=== PATIENT | female | born 1955 | race Caucasian/White ===

== ENCOUNTER 2017-08-15 23:30 | Inpatient (IN) | payer BC ==
[~2017-08-15] VITALS: Ht 149.9 cm; Wt 111.4 kg
[2017-08-15 23:30] VITALS: BP_SYST 160
[2017-08-15] MEDS ORDERED: BACL10TA PO (23:42)
[2017-08-15] MEDS ORDERED: LYR50 PO (23:42)
[2017-08-15] MEDS ORDERED: FURO-150 PO (23:42)
[2017-08-15] MEDS ORDERED: OXYC10TA71 PO (23:42)
[2017-08-16 01:08] LABS: BASOPHILS % (AUTO) 0.1 % (0.0-2.0); EOSINOPHILS # (AUTO) 0.2 K/uL (0.0-0.4); HEMOGLOBIN 9.9 g/dL (12.0-16.0); LYMPHOCYTES # (AUTO) 0.8 K/uL (1.0-5.5); LYMPHOCYTES % (AUTO) 8.3 % (20.5-51.5); MEAN CORPUSCULAR HEMOGLOBIN 25 pg (27-31); MEAN CORPUSCULAR HGB CONC 33 % (32-36); MEAN CORPUSCULAR VOLUME 76 fL (79.0-98.0); MONOCYTES # (AUTO) 0.6 K/uL (0.0-1.0); NEUTROPHILS % (AUTO) 83.6 % (40.0-70.0); PLATELET COUNT (AUTO) 265 K/uL (130-430); RED BLOOD CELL COUNT(AUTO) 3.95 MIL/uL (4.2-6.2); RED CELL DISTRIBUTION WIDTH 17.4 % (9.0-15.0); WHITE BLOOD COUNT (AUTO) 9.6 K/uL (4.8-10.8)
[2017-08-16 01:16] LABS: INR 1.9 (0.8-1.2); PROTHROMBIN TIME 19.6 SECS (9.5-12.5)
[2017-08-16 01:20] LABS: CALCIUM 7.8 mg/dL (8.4-11.0); CREATININE 1.72 mg/dL (0.55-1.30); POTASSIUM 3.8 mmol/L (3.5-5.1)
[2017-08-16 01:26] LABS: ALBUMIN 2.8 g/dL (3.4-4.8); TOTAL BILIRUBIN 0.5 mg/dL (0.0-1.0)
[2017-08-16 02:37] LABS: BILIRUBIN,URINE NEGATIVE (NEGATIVE); BLOOD, URINE TRACE (NEGATIVE); CLARITY/URINE CLEAR (CLEAR); COLOR,URINE YELLOW (YELLOW); GLUCOSE,URINE TRACE (NEGATIVE); KETONES,URINE NEGATIVE (NEGATIVE); LEUKOCYTE ESTERASE ,URINE NEGATIVE (NEGATIVE); NITRITE, URINE NEGATIVE (NEGATIVE); PROTEIN URINE TRACE (NEGATIVE); UROBILINOGEN,URINE 0.2 (0.2-1.0)
[2017-08-16 02:40] LABS: BACTERIA,URINE FEW /HPF (None Seen); MUCUS,URINE None Seen /LPF (None Seen); RBC,URINE 0-3 /HPF (0-3); WBC,URINE 0-3 /HPF (0-3)
[2017-08-16] MEDS ORDERED: KETOROLAC TROMETHAMINE 15 MG VIAL IVP ONE (03:00)
[2017-08-16] MEDS ORDERED: ONDANSETRON HCL 4 MG/2 ML VIAL IVP PRN (03:15)
[2017-08-16] MEDS ORDERED: FUROSEMIDE 40 MG/4 ML VIAL IVP SCH (03:30)
[2017-08-16 03:34] VITALS: BP_SYST 109
[2017-08-16 03:52] VITALS: BP_SYST 109
[2017-08-16] MEDS ORDERED: WARF4TAB68 PO (03:59)
[2017-08-16] MEDS: INSULIN REGULAR, HUMAN 100 UNITS/ML, 10 ML VIAL (novoLIN R) SUBCUT PRN ×3 (06:17→17:38)
[2017-08-16 08:00] VITALS: BP_SYST 127
[2017-08-16] MEDS: FUROSEMIDE 40 MG/4 ML VIAL IVP SCH ×2 (08:13→20:30)
[2017-08-16] MEDS ORDERED: CARVEDILOL 6.25 MG TABLET (COREG) PO ONE (09:45)
[2017-08-16] MEDS ORDERED: SPIRONOLACTONE 25 MG TABLET (ALDACTONE) PO ONE (10:00)
[2017-08-16 12:15] VITALS: BP_SYST 120
[2017-08-16] MEDS ORDERED: oxyCODONE HCL 10 MG TAB.ER.12H PO PRN (13:45)
[2017-08-16] MEDS: BACLOFEN 10 MG TABLET PO SCH ×2 (15:43→20:30)
[2017-08-16 16:59] VITALS: BP_SYST 102
[2017-08-16] MEDS: WARFARIN SODIUM 2 MG TABLET PO SCH (17:32)
[2017-08-16] MEDS: MORPHINE 4 MG/ML INJ. SYRINGE IVP PRN (18:15)
[2017-08-16 19:55] VITALS: BP_SYST 120
[2017-08-16] MEDS: SPIRONOLACTONE 25 MG TABLET (ALDACTONE) PO SCH (20:30)
[2017-08-16] MEDS ORDERED: CARVEDILOL 6.25 MG TABLET (COREG) PO SCH (21:00)
[2017-08-17] MEDS: MORPHINE 4 MG/ML INJ. SYRINGE IVP PRN ×4 (00:43→20:33)
[2017-08-17 01:35] VITALS: BP_SYST 111
[2017-08-17 05:11] VITALS: BP_SYST 107
[2017-08-17] MEDS: INSULIN REGULAR, HUMAN 100 UNITS/ML, 10 ML VIAL (novoLIN R) SUBCUT PRN ×3 (06:46→17:07)
[2017-08-17 07:18] LABS: BASOPHILS % (AUTO) 0.4 % (0.0-2.0); EOSINOPHILS # (AUTO) 0.2 K/uL (0.0-0.4); EOSINOPHILS % (AUTO) 2.8 % (0.0-4.0); HEMATOCRIT 30.5 % (36-48); HEMOGLOBIN 9.8 g/dL (12.0-16.0); LYMPHOCYTES % (AUTO) 12.1 % (20.5-51.5); MEAN CORPUSCULAR HEMOGLOBIN 25 pg (27-31); MEAN CORPUSCULAR HGB CONC 32 % (32-36); MEAN CORPUSCULAR VOLUME 77 fL (79.0-98.0); MONOCYTES # (AUTO) 0.4 K/uL (0.0-1.0); MONOCYTES % (AUTO) 4.9 % (1.7-9.3); NEUTROPHILS # (AUTO) 6.7 K/uL (1.8-7.7); NEUTROPHILS % (AUTO) 79.8 % (40.0-70.0); PLATELET COUNT (AUTO) 248 K/uL (130-430); RED BLOOD CELL COUNT(AUTO) 3.99 MIL/uL (4.2-6.2); RED CELL DISTRIBUTION WIDTH 17.6 % (9.0-15.0); WHITE BLOOD COUNT (AUTO) 8.3 K/uL (4.8-10.8)
[2017-08-17 07:30] LABS: INR 1.6 (0.8-1.2); PROTHROMBIN TIME 16.6 SECS (9.5-12.5)
[2017-08-17 07:52] LABS: ALBUMIN 2.6 g/dL (3.4-4.8); CALCIUM 8.2 mg/dL (8.4-11.0); CREATININE 1.45 mg/dL (0.55-1.30); POTASSIUM 3.9 mmol/L (3.5-5.1); TOTAL BILIRUBIN 0.7 mg/dL (0.0-1.0)
[2017-08-17 07:53] LABS: TOTAL IRON BIND. CAPACITY 299 ug/dL (250-450)
[2017-08-17 08:00] VITALS: BP_SYST 118
[2017-08-17] MEDS ORDERED: METOLAZONE 5 MG TABLET PO ONE (08:00)
[2017-08-17] MEDS ORDERED: MILK OF MAGNESIA 30 ML UDC PO ONE (08:00)
[2017-08-17] MEDS: BACLOFEN 10 MG TABLET PO SCH ×3 (08:05→21:54)
[2017-08-17] MEDS: SPIRONOLACTONE 25 MG TABLET (ALDACTONE) PO SCH ×2 (08:06→21:53)
[2017-08-17] MEDS: FUROSEMIDE 40 MG/4 ML VIAL IVP SCH ×2 (08:06→21:55)
[2017-08-17] MEDS: CARVEDILOL 12.5 MG TABLET (COREG) PO SCH ×2 (08:56→21:53)
[2017-08-17] MEDS ORDERED: WARFARIN SODIUM 4 MG TABLET PO SCH (09:00)
[2017-08-17 09:39] LABS: INR 1.6 (0.8-1.2); PROTHROMBIN TIME 16.8 SECS (9.5-12.5)
[2017-08-17 12:10] VITALS: BP_SYST 136
[2017-08-17] MEDS: NEPHROVITE, (FOLIC ACID/VITAMIN B COMP W-C 1 TAB) PO SCH (14:27)
[2017-08-17] MEDS: SOD FERRIC GLUC COMPLEX/SUC 125 MG in NS 100 ML IV SCH (14:27)
[2017-08-17 16:05] VITALS: BP_SYST 129
[2017-08-17] MEDS: WARFARIN SODIUM 2 MG TABLET PO SCH (17:08)
[2017-08-17 20:15] VITALS: BP_SYST 112
[2017-08-18 00:49] VITALS: BP_SYST 130
[2017-08-18] MEDS: MORPHINE 4 MG/ML INJ. SYRINGE IVP PRN ×4 (02:27→21:22)
[2017-08-18] MEDS: INSULIN REGULAR, HUMAN 100 UNITS/ML, 10 ML VIAL (novoLIN R) SUBCUT PRN ×3 (06:13→16:34)
[2017-08-18 07:17] LABS: BASOPHILS % (AUTO) 0.4 % (0.0-2.0); EOSINOPHILS # (AUTO) 0.2 K/uL (0.0-0.4); EOSINOPHILS % (AUTO) 3.2 % (0.0-4.0); HEMATOCRIT 29.1 % (36-48); HEMOGLOBIN 9.3 g/dL (12.0-16.0); LYMPHOCYTES # (AUTO) 0.9 K/uL (1.0-5.5); LYMPHOCYTES % (AUTO) 12.3 % (20.5-51.5); MEAN CORPUSCULAR HEMOGLOBIN 24 pg (27-31); MEAN CORPUSCULAR HGB CONC 32 % (32-36); MEAN CORPUSCULAR VOLUME 76 fL (79.0-98.0); MONOCYTES # (AUTO) 0.5 K/uL (0.0-1.0); MONOCYTES % (AUTO) 7.8 % (1.7-9.3); NEUTROPHILS # (AUTO) 5.4 K/uL (1.8-7.7); NEUTROPHILS % (AUTO) 76.3 % (40.0-70.0); PLATELET COUNT (AUTO) 231 K/uL (130-430); RED BLOOD CELL COUNT(AUTO) 3.84 MIL/uL (4.2-6.2); RED CELL DISTRIBUTION WIDTH 17.6 % (9.0-15.0)
[2017-08-18 08:00] VITALS: BP_SYST 104
[2017-08-18 08:18] LABS: INR 1.6 (0.8-1.2); PROTHROMBIN TIME 16.1 SECS (9.5-12.5)
[2017-08-18] MEDS: NEPHROVITE, (FOLIC ACID/VITAMIN B COMP W-C 1 TAB) PO SCH (08:20)
[2017-08-18] MEDS: BACLOFEN 10 MG TABLET PO SCH ×3 (08:20→21:07)
[2017-08-18] MEDS: FUROSEMIDE 40 MG/4 ML VIAL IVP SCH ×2 (08:25→21:06)
[2017-08-18] MEDS: SPIRONOLACTONE 25 MG TABLET (ALDACTONE) PO SCH ×2 (08:26→21:06)
[2017-08-18] MEDS: CARVEDILOL 12.5 MG TABLET (COREG) PO SCH ×2 (08:26→21:07)
[2017-08-18 08:46] LABS: RETICULOCYTE COUNT 3.6 % (0.5-1.5)
[2017-08-18 08:52] LABS: ALBUMIN 2.4 g/dL (3.4-4.8); CALCIUM 8.4 mg/dL (8.4-11.0); CREATININE 1.45 mg/dL (0.55-1.30); POTASSIUM 3.8 mmol/L (3.5-5.1); TOTAL BILIRUBIN 0.5 mg/dL (0.0-1.0)
[2017-08-18] MEDS ORDERED: METOLAZONE 5 MG TABLET PO ONE (10:55)
[2017-08-18 12:38] VITALS: BP_SYST 101
[2017-08-18 13:24] LABS: FOLATE (FOLIC ACID) 10.3 ng/mL (>3.0)
[2017-08-18] MEDS: SIMETHICONE 80 MG TAB.CHEW PO SCH ×2 (14:16→21:07)
[2017-08-18] MEDS: SOD FERRIC GLUC COMPLEX/SUC 125 MG in NS 100 ML IV SCH (14:17)
[2017-08-18 16:24] VITALS: BP_SYST 111
[2017-08-18] MEDS: WARFARIN SODIUM 2 MG TABLET PO SCH (17:53)
[2017-08-18 20:00] VITALS: BP_SYST 134
[2017-08-18 23:43] VITALS: BP_SYST 123
[2017-08-19] MEDS: MORPHINE 4 MG/ML INJ. SYRINGE IVP PRN ×4 (04:19→23:52)
[2017-08-19] MEDS: INSULIN REGULAR, HUMAN 100 UNITS/ML, 10 ML VIAL (novoLIN R) SUBCUT PRN ×3 (06:33→17:18)
[2017-08-19 06:41] LABS: BASOPHILS % (AUTO) 0.4 % (0.0-2.0); EOSINOPHILS # (AUTO) 0.2 K/uL (0.0-0.4); HEMOGLOBIN 9.6 g/dL (12.0-16.0); LYMPHOCYTES # (AUTO) 0.9 K/uL (1.0-5.5); LYMPHOCYTES % (AUTO) 10.9 % (20.5-51.5); MEAN CORPUSCULAR HEMOGLOBIN 25 pg (27-31); MEAN CORPUSCULAR HGB CONC 33 % (32-36); MEAN CORPUSCULAR VOLUME 75 fL (79.0-98.0); MONOCYTES # (AUTO) 0.5 K/uL (0.0-1.0); MONOCYTES % (AUTO) 6.5 % (1.7-9.3); NEUTROPHILS # (AUTO) 6.7 K/uL (1.8-7.7); NEUTROPHILS % (AUTO) 79.2 % (40.0-70.0); PLATELET COUNT (AUTO) 241 K/uL (130-430); RED BLOOD CELL COUNT(AUTO) 3.85 MIL/uL (4.2-6.2); RED CELL DISTRIBUTION WIDTH 17.5 % (9.0-15.0); WHITE BLOOD COUNT (AUTO) 8.3 K/uL (4.8-10.8)
[2017-08-19 07:13] LABS: INR 1.5 (0.8-1.2); PROTHROMBIN TIME 15.4 SECS (9.5-12.5)
[2017-08-19 07:28] LABS: CALCIUM 8.6 mg/dL (8.4-11.0); CREATININE 1.49 mg/dL (0.55-1.30)
[2017-08-19 08:00] VITALS: BP_SYST 101
[2017-08-19] MEDS: NEPHROVITE, (FOLIC ACID/VITAMIN B COMP W-C 1 TAB) PO SCH (10:09)
[2017-08-19] MEDS: SIMETHICONE 80 MG TAB.CHEW PO SCH ×3 (10:10→22:10)
[2017-08-19] MEDS: BACLOFEN 10 MG TABLET PO SCH ×3 (10:10→22:10)
[2017-08-19] MEDS: METOLAZONE 5 MG TABLET PO SCH (11:33)
[2017-08-19] MEDS: FUROSEMIDE 40 MG/4 ML VIAL IVP SCH ×2 (11:33→22:10)
[2017-08-19] MEDS: SPIRONOLACTONE 25 MG TABLET (ALDACTONE) PO SCH ×2 (11:34→22:11)
[2017-08-19] MEDS: CARVEDILOL 12.5 MG TABLET (COREG) PO SCH ×2 (11:35→22:10)
[2017-08-19 12:05] VITALS: BP_SYST 122
[2017-08-19] MEDS ORDERED: BISACODYL 10 MG/SUPPOSITORY RC PRN (13:30)
[2017-08-19] MEDS ORDERED: BISACODYL 5 MG TABLET.DR (DULCOLAX) PO PRN (13:30)
[2017-08-19] MEDS ORDERED: BISACODYL 5 MG TABLET.DR (DULCOLAX) PO ONE (13:30)
[2017-08-19] MEDS: SOD FERRIC GLUC COMPLEX/SUC 125 MG in NS 100 ML IV SCH (14:07)
[2017-08-19] MEDS ORDERED: DOCUSATE SODIUM 250 MG CAPSULE PO ONE (14:15)
[2017-08-19 16:52] VITALS: BP_SYST 106
[2017-08-19] MEDS ORDERED: WARFARIN SODIUM 3 MG TABLET PO SCH (18:00)
[2017-08-19 20:00] VITALS: BP_SYST 118
[2017-08-19] MEDS: DOCUSATE SODIUM 250 MG CAPSULE PO SCH (22:11)
[2017-08-20 00:54] VITALS: BP_SYST 104
[2017-08-20 06:22] LABS: BASOPHILS % (AUTO) 0.3 % (0.0-2.0); EOSINOPHILS # (AUTO) 0.2 K/uL (0.0-0.4); EOSINOPHILS % (AUTO) 2.4 % (0.0-4.0); HEMATOCRIT 30.7 % (36-48); HEMOGLOBIN 10.2 g/dL (12.0-16.0); LYMPHOCYTES # (AUTO) 0.9 K/uL (1.0-5.5); LYMPHOCYTES % (AUTO) 9.2 % (20.5-51.5); MEAN CORPUSCULAR HEMOGLOBIN 25 pg (27-31); MEAN CORPUSCULAR HGB CONC 33 % (32-36); MEAN CORPUSCULAR VOLUME 76 fL (79.0-98.0); MONOCYTES # (AUTO) 0.6 K/uL (0.0-1.0); MONOCYTES % (AUTO) 6.4 % (1.7-9.3); NEUTROPHILS # (AUTO) 7.7 K/uL (1.8-7.7); NEUTROPHILS % (AUTO) 81.7 % (40.0-70.0); PLATELET COUNT (AUTO) 253 K/uL (130-430); RED BLOOD CELL COUNT(AUTO) 4.03 MIL/uL (4.2-6.2); WHITE BLOOD COUNT (AUTO) 9.4 K/uL (4.8-10.8)
[2017-08-20] MEDS: INSULIN REGULAR, HUMAN 100 UNITS/ML, 10 ML VIAL (novoLIN R) SUBCUT PRN ×2 (06:24→11:52)
[2017-08-20 06:36] LABS: CALCIUM 8.7 mg/dL (8.4-11.0); CREATININE 1.53 mg/dL (0.55-1.30); POTASSIUM 3.7 mmol/L (3.5-5.1)
[2017-08-20 08:00] VITALS: BP_SYST 96
[2017-08-20] MEDS: MORPHINE 4 MG/ML INJ. SYRINGE IVP PRN ×2 (08:22→14:49)
[2017-08-20 10:19] LABS: INR 1.7 (0.8-1.2); PROTHROMBIN TIME 17.2 SECS (9.5-12.5)
[2017-08-20] MEDS: DOCUSATE SODIUM 250 MG CAPSULE PO SCH (10:21)
[2017-08-20] MEDS: NEPHROVITE, (FOLIC ACID/VITAMIN B COMP W-C 1 TAB) PO SCH (10:21)
[2017-08-20] MEDS: SIMETHICONE 80 MG TAB.CHEW PO SCH (10:22)
[2017-08-20] MEDS: BACLOFEN 10 MG TABLET PO SCH (10:22)
[2017-08-20] MEDS: METOLAZONE 5 MG TABLET PO SCH (10:26)
[2017-08-20] MEDS: CARVEDILOL 12.5 MG TABLET (COREG) PO SCH (10:26)
[2017-08-20] MEDS: FUROSEMIDE 40 MG/4 ML VIAL IVP SCH (10:26)
[2017-08-20] MEDS: SPIRONOLACTONE 25 MG TABLET (ALDACTONE) PO SCH (10:27)
[2017-08-20 12:53] VITALS: BP_SYST 110
[2017-08-20] MEDS: SOD FERRIC GLUC COMPLEX/SUC 125 MG in NS 100 ML IV SCH (13:50)
[2017-08-20 14:00] VITALS: BP_SYST 110
== END 2017-08-20 16:15 | DRG 291 ==
LOC: SED 23:30 → STU 08-16 03:01
PROVIDERS: ADMIT Internal Medicine; ATTEND Internal Medicine
DX: I13.0 Hypertensive heart and chronic kidney disease with heart failure and stage 1 through stage 4 chronic kidney disease, or unspecified chronic kidney disease (principal); I50.43 Acute on chronic combined systolic (congestive) and diastolic (congestive) heart failure; N17.0 Acute kidney failure with tubular necrosis; E43 Unspecified severe protein-calorie malnutrition; Z68.42 Body mass index [BMI] 45.0-49.9, adult; E11.22 Type 2 diabetes mellitus with diabetic chronic kidney disease; E11.42 Type 2 diabetes mellitus with diabetic polyneuropathy; I42.0 Dilated cardiomyopathy; E66.01 Morbid (severe) obesity due to excess calories; D63.8 Anemia in other chronic diseases classified elsewhere; N18.3 Chronic kidney disease, stage 3 (moderate); K43.9 Ventral hernia without obstruction or gangrene; G89.4 Chronic pain syndrome; E88.09 Other disorders of plasma-protein metabolism, not elsewhere classified; Z85.42 Personal history of malignant neoplasm of other parts of uterus; Z86.711 Personal history of pulmonary embolism; Z98.891 History of uterine scar from previous surgery; Z92.3 Personal history of irradiation; Z90.710 Acquired absence of both cervix and uterus; Z92.21 Personal history of antineoplastic chemotherapy; Z85.43 Personal history of malignant neoplasm of ovary; Z79.01 Long term (current) use of anticoagulants; Z79.899 Other long term (current) drug therapy; Z91.14 Patient's other noncompliance with medication regimen
CPT/HCPCS: 36415; 71045; 76770; 80048; 80053; 80061; 81000-TC; 82570-TC; 82607; 82746; 82962; 83036; 83540-TC; 83550-TC; 83735-TC; 83880; 84443-TC; 84484; 85025; 85044-TC; 85610-TC; 85730-TC; 93005; 93306; 93880; 97110-GP; 97116-GP; 97530-GP; 99285; J1815; J1940; J2270; J2916

== ENCOUNTER 2017-12-17 11:50 | Inpatient (IN) | payer BC ==
[~2017-12-17] VITALS: Ht 147.3 cm; Wt 107.0 kg
[~2017-12-17 11:50] MED LIST: BACL10TA PO; FURO-150 PO; LYR50 PO; OXYC10TA56 PO; WARF4TAB68 PO
[2017-12-17 11:52] VITALS: BP_SYST 124
--- NOTE | 2017-12-17 11:52 | NUR ---
Pt BIB daughter from home. Daughter states that pt is off her baseline. Daughter states that pt usually gets her child ready for school but this morning only got her partially dressed. Also pt.'s close were all over the floor. Daughter states that she found a bottle of Lyrica with pills all over the floor and some run over and crushed by pt.'s W/C. Pt AAOx2, talkative. Pt c/o pain and swelling to BLE.
--- NOTE | 2017-12-17 11:52 | NUR ---
Pt placed in bed 2
--- NOTE | 2017-12-17 11:55 | NUR ---
Bigeminy and Trigeminy noted to engine monitor. Dr. Hawkins made aware.
--- NOTE | 2017-12-17 12:00 | NUR ---
ER Dr. Hawkins at bedside examining patient.
--- NOTE | 2017-12-17 12:06 | NUR ---
# 22 gauge angiocath placed to Right Wrist. Use of asceptic technique. Opsite placed over site. Blood return noted. Blood for lab drawn from site. Flushed with 10 cc of normal saline. No evidence of infiltration noted. Patient tolerated well.
--- NOTE | 2017-12-17 12:10 | NUR ---
Pt denies c/o SOB or C/P. Daughter at bedside. No needs verbalized.
--- NOTE | 2017-12-17 12:14 | NUR ---
X-ray at bedside.
[2017-12-17 12:23] LABS: BASOPHILS # (AUTO) 0.1 K/uL (0.0-0.2); BASOPHILS % (AUTO) 0.7 % (0.0-2.0); EOSINOPHILS % (AUTO) 0.4 % (0.0-4.0); HEMATOCRIT 32.1 % (36-48); HEMOGLOBIN 10.8 g/dL (12.0-16.0); LYMPHOCYTES # (AUTO) 0.6 K/uL (1.0-5.5); LYMPHOCYTES % (AUTO) 5.8 % (20.5-51.5); MEAN CORPUSCULAR HEMOGLOBIN 29 pg (27-31); MEAN CORPUSCULAR HGB CONC 34 % (32-36); MEAN CORPUSCULAR VOLUME 87 fL (79.0-98.0); MONOCYTES # (AUTO) 0.3 K/uL (0.0-1.0); MONOCYTES % (AUTO) 3.5 % (1.7-9.3); NEUTROPHILS # (AUTO) 8.5 K/uL (1.8-7.7); NEUTROPHILS % (AUTO) 89.6 % (40.0-70.0); PLATELET COUNT (AUTO) 212 K/uL (130-430); RED CELL DISTRIBUTION WIDTH 14.9 % (9.0-15.0); WHITE BLOOD COUNT (AUTO) 9.5 K/uL (4.8-10.8)
--- NOTE | 2017-12-17 12:36 | NUR ---
Pt. to CT via stretcher.
[2017-12-17 12:40] LABS: ANION GAP 13 (5-15); CALCIUM 9.3 mg/dL (8.4-11.0); CHLORIDE 105 mmol/L (98-107); GLUCOSE 168 mg/dL (70-99); POTASSIUM 3.8 mmol/L (3.5-5.1); SODIUM SERUM 141 mmol/L (136-145); UREA NITROGEN, BLOOD 49 mg/dL (8-21)
[2017-12-17 12:42] LABS: GFR AFRICAN AMERICAN 34 mL/min (>90)
[2017-12-17 12:46] LABS: ALANINE AMINOTRANSFERASE 13 U/L (12-78); ALBUMIN 3.3 g/dL (3.4-4.8); ASPARTATE AMINOTRANSFERASE 15 U/L (10-37); TOTAL BILIRUBIN 0.7 mg/dL (0.0-1.0)
[2017-12-17 12:47] LABS: ALCOHOL, BLOOD < 3 mg/dL (<10)
[2017-12-17 12:49] LABS: INR 4.7 (0.8-1.2); PROTHROMBIN TIME 48.9 SECS (9.5-12.5)
--- NOTE | 2017-12-17 13:00 | NUR ---
Resting quietly, even and non-labored respirations. SPO2 94% RA. Occasional trigeminy noted to bedside supervisor paper coating. Dr. Hawkins aware. Pt denies c/o C/P.
--- NOTE | 2017-12-17 14:35 | NUR ---
Admit orders received per Dr. Pierce. Pt SPO2 in low 90's. Instructed to get stat ABG.
--- NOTE | 2017-12-17 14:38 | NUR ---
RT at bedside. ABG drawn. Pt placed on O2 at 2 LPM/NC, SPO2 100%.
--- NOTE | 2017-12-17 15:12 | NUR ---
Patient will be admitted to care of Dr. Pierce. Admitted to Tele unit. Will go to room 113B. Belongings list completed. Summary report printed. Report will be given at bedside.
--- NOTE | 2017-12-17 15:22 | NUR ---
Admission Note Received patient from ER with diagnosis of aloc. Oriented to room, call light, pain management and safety. Addendum: 12/17/17 at 1957 by Carole Quiroz RN pt home medication list verified with marta gatica
[2017-12-17 15:37] VITALS: BP_SYST 122
--- NOTE | 2017-12-17 16:00 | NUR ---
rounds pt lethergic able to aroused easily with verbal stimuli. vitals stable denies any pain or discomfort. daughter at bedside. dr adkins seen pt new order received will conitnue to monitor
[2017-12-17] MEDS ORDERED: CARV6.2554 PO (16:04)
[2017-12-17] MEDS ORDERED: DEXTROSE 50% JECT 50 ML DISP.SYRIN IVP PRN (17:15)
--- NOTE | 2017-12-17 17:43 | NUR ---
CONSULTATION PAGED REASON FOR CONSULTATION:ALOC WAS CONSULT CALLED?Y PERSON WHO WAS NOTIFIED:PEGGY CONSULTING PHYSICIAN:ASAF RUDOLPH AUDIO VISUAL EQUIPMENT RENTAL CLERK SPECIALTY:PSYCHE AUDIO VISUAL EQUIPMENT RENTAL CLERK PHONE NUMBER:[phone] ORDERING PHYSICIAN:CINDY JUNIOR
--- NOTE | 2017-12-17 18:00 | NUR ---
rounds pt stable . sleeping easily aroused. tried to feed pt.pt ate half of her ice cream.and drank milk. denies any pain or orther discomfort. fall and safety precautions maintained . will continue to monitor
--- NOTE | 2017-12-17 19:15 | NUR ---
REPORT: RECEIVED BEDSIDE REPORT FROM RAMAN BLOOM.PATIENT IN BED AT 30 DEGREES HEAD OF UP.NO RESPONSE WHEN CALLED HER NAME LOUD. NO RESPONSE WITH SLIGHT TO MODERATE STERNAL STIMULI.NO RESPONSE DURING NAIL PINCHING. MOANS LIGHTLY WITH STRONG STERNAL STIMULI. REPORTED TO AM AND PM CHARGE RNS. SAID PT. ADMITTED WITH ALOC AND PRIMARY MD IS AWARE OF IT.VITAL SIGNS TAKEN AT 19:18 122/75 HR 87 RR 15 -16 SAT 99%AT 2 LITERS PER NASAL CANNULA. TEMP 97.8.VERY OBESE, GENERALIZED EDEMA, LARGE LYMPH EDEMA TO BOTH LEGS, HUGE ABDOMEN. SINUS WITH 1ST DEG AV BLOCK WITH PVCS. INCONTINENT OF URINE. SALINE LOCK TO RFA #22 GAUGE. CALL LIGHT WITHIN REACH. BED IN LOW POSITION.
[2017-12-17 19:18] VITALS: BP_SYST 123
--- NOTE | 2017-12-17 19:30 | NUR ---
closing notes pt stable . not in acute distress. denies c/o of pain or orther discomfort. o2 2 l continue as ordered o2 sat 98%. report given to night nurse
[2017-12-17 20:00] VITALS: BP_SYST 106
--- NOTE | 2017-12-17 20:00 | NUR ---
REMAINS UNRESPONSIVE VERBALLY,MOANS SLOWLY TO STRONG STERNAL STIMULI. PAGED DR. HERNÁNDEZ .
--- NOTE | 2017-12-17 20:05 | NUR ---
BP 106 /59 HR 77 RR 16 SAT 97%,PLACED ON CONT. RECORDING OF PULSE OXIMETER.
--- NOTE | 2017-12-17 20:15 | NUR ---
RAMAN MUNGUIA INSERTED GAUGE #20 TO LFA X1 ATTEMPT WITH BLOOD RETURN.
--- NOTE | 2017-12-17 20:25 | NUR ---
.CALLED BACK: Vnice MONTIEL CALLED BACK. REPORTED CURRENT PATIENT CONDITIONS ,WITH ORDERS.
[2017-12-17] MEDS ORDERED: NALOXONE HCL 0.4 MG/ML AMP (NARCAN) IVP ONE (20:30)
--- NOTE | 2017-12-17 20:35 | NUR ---
CASILLAS CATHETER FR. 16 INSERTED WITH HELP OF 2 STAFF. WITH GOOD AMT. CLEAR FRED URINE.
[2017-12-17] MEDS ORDERED: NALOXONE HCL 0.4 MG/ML AMP (NARCAN) IVP SCH (20:45)
[2017-12-17] MEDS: FUROSEMIDE 20 MG TABLET PO SCH (21:00)
[2017-12-17] MEDS: BACLOFEN 10 MG TABLET PO SCH (21:00)
--- NOTE | 2017-12-17 21:18 | NUR ---
NARCAN: NARCAN 0.4MG IV GIVEN SLOWLY DUE TO PATIENT OBTUNDED.OPENS EYES SLOWLY TO STRONG STERNAL STIMULI. DRUM CLEANER AND ADRN AWARE.
[2017-12-17 21:53] LABS: BILIRUBIN,URINE NEGATIVE (NEGATIVE); BLOOD, URINE NEGATIVE (NEGATIVE); CLARITY/URINE CLEAR (CLEAR); COLOR,URINE YELLOW (YELLOW); GLUCOSE,URINE NEGATIVE (NEGATIVE); KETONES,URINE NEGATIVE (NEGATIVE); LEUKOCYTE ESTERASE ,URINE NEGATIVE (NEGATIVE); NITRITE, URINE NEGATIVE (NEGATIVE); PH,URINE 5.5 (5.0-8.0); PROTEIN URINE TRACE (NEGATIVE); UROBILINOGEN,URINE 0.2 (0.2-1.0)
[2017-12-17] MEDS: PREGABALIN 25 MG CAPSULE (LYRICA) PO SCH (22:00)
[2017-12-17 22:03] LABS: BACTERIA,URINE FEW /HPF (None Seen); MUCUS,URINE None Seen /LPF (None Seen); RBC,URINE NONE SEEN /HPF (0-3); WBC,URINE 0-3 /HPF (0-3)
--- NOTE | 2017-12-17 22:10 | NUR ---
ROUNDS: OPENS EYES WITH MOD. STERNAL STIMULI.OPENS EYES SLOWLY.
[2017-12-17 23:49] VITALS: BP_SYST 113
--- NOTE | 2017-12-18 | NUR ---
MORE AWAKE. TRY TO SITS UP ON BED. CONFUSE.ORIENTED TO PLACE ONLY. DONT KNOW HER NAME. FOLLOW COMMANDS BY SQUEEZING SLOWLY HANDS BUT DID AT 3X REQUESTS.
--- NOTE | 2017-12-18 02:00 | NUR ---
OPENS EYES AND MOANS WITH LIGHT STIMULI.TURNED TO SIGNS.
--- NOTE | 2017-12-18 04:00 | NUR ---
RESTING QUIETELY. WITH OXYGEN ON .SAT 94%.
[2017-12-18 04:03] LABS: BARBITURATE, URINE NEGATIVE (NEG <=200); BENZODIAZEPINE, URINE NEGATIVE (NEG <=150); CANNABINOID, URINE NEGATIVE (NEG <=50); COCAINE, URINE NEGATIVE (NEG <=150); METHAMPHETAMINES SCREEN,URINE NEGATIVE (NEG <=500); OPIATE, URINE NEGATIVE (NEG <=100); PHENCYCLIDINE SCREEN,URINE NEGATIVE (NEG <=25); UR TRICYCLIC ANTIDEPRESSANTS NEGATIVE (NEG <=300); URINE AMPHETAMINE NEGATIVE (NEG <=500); URINE METHADONE NEGATIVE (NEG <=200); URINE OXYCODONE SCREEN POSITIVE (NEG <=100); URINE PROPOXYPHENE SCREEN NEGATIVE (NEG <=300)
--- NOTE | 2017-12-18 04:30 | NUR ---
patient yelling due to pain. it hurts. does not know her name yet.
--- NOTE | 2017-12-18 05:45 | NUR ---
verbalizing having low back pain. oriented x3. this time.able to verbalize what happen how she got to er. able to drink water with good swallowing reflex. lyrica 50mg po given with orange juice without difficulty. blood sugar 128mg/dl. no coverage.
[2017-12-18] MEDS: PREGABALIN 25 MG CAPSULE (LYRICA) PO SCH (06:37)
--- NOTE | 2017-12-18 06:50 | NUR ---
closing: all needs were attended. hourly rounds done. repositioned. more coherent this morning. full report given to am rn for further care.
--- NOTE | 2017-12-18 07:38 | NUR ---
Initial notes: Patient on bed awake, alert and oriented. Stable. On oxygen @2l via NC. I.V. access patent. Safety measures in placed. Call light within reach. Report received from bedside.
[2017-12-18 07:43] LABS: ANION GAP 9 (5-15); CHLORIDE 108 mmol/L (98-107); CREATININE 1.48 mg/dL (0.55-1.30); POTASSIUM 4.1 mmol/L (3.5-5.1); UREA NITROGEN, BLOOD 43 mg/dL (8-21)
[2017-12-18 07:48] LABS: SODIUM SERUM 144 mmol/L (136-145)
[2017-12-18 07:49] LABS: GLUCOSE 135 mg/dL (70-99)
[2017-12-18 07:50] LABS: ALANINE AMINOTRANSFERASE 19 U/L (12-78); ASPARTATE AMINOTRANSFERASE 20 U/L (10-37); GFR AFRICAN AMERICAN 43 mL/min (>90); TOTAL BILIRUBIN 0.6 mg/dL (0.0-1.0)
[2017-12-18 07:51] LABS: ALBUMIN 2.8 g/dL (3.4-4.8); PHOSPHORUS 5.5 mg/dL (2.7-4.5)
[2017-12-18 07:54] VITALS: BP_SYST 130
[2017-12-18 07:54] LABS: FREE T4 (FREE THYROXINE) 1.1 ng/dL (0.6-1.6); LIPASE 42 U/L (73-393); THYROID STIMULATING HORMONE 0.54 uIu/mL (0.34-4.82)
[2017-12-18 08:02] LABS: BASOPHILS % (AUTO) 0.4 % (0.0-2.0); EOSINOPHILS # (AUTO) 0.1 K/uL (0.0-0.4); EOSINOPHILS % (AUTO) 0.9 % (0.0-4.0); HEMATOCRIT 32.8 % (36-48); HEMOGLOBIN 10.7 g/dL (12.0-16.0); LYMPHOCYTES # (AUTO) 0.5 K/uL (1.0-5.5); LYMPHOCYTES % (AUTO) 7.3 % (20.5-51.5); MEAN CORPUSCULAR HEMOGLOBIN 28 pg (27-31); MEAN CORPUSCULAR HGB CONC 33 % (32-36); MEAN CORPUSCULAR VOLUME 87 fL (79.0-98.0); MONOCYTES # (AUTO) 0.3 K/uL (0.0-1.0); MONOCYTES % (AUTO) 5.2 % (1.7-9.3); NEUTROPHILS # (AUTO) 5.8 K/uL (1.8-7.7); NEUTROPHILS % (AUTO) 86.2 % (40.0-70.0); PLATELET COUNT (AUTO) 193 K/uL (130-430); RED BLOOD CELL COUNT(AUTO) 3.77 MIL/uL (4.2-6.2); RED CELL DISTRIBUTION WIDTH 15.8 % (9.0-15.0); WHITE BLOOD COUNT (AUTO) 6.7 K/uL (4.8-10.8)
[2017-12-18] MEDS: FUROSEMIDE 20 MG TABLET PO SCH ×2 (08:23→21:10)
[2017-12-18] MEDS: BACLOFEN 10 MG TABLET PO SCH ×3 (08:23→21:10)
[2017-12-18] MEDS: CARVEDILOL 6.25 MG TABLET (COREG) PO SCH (08:23)
--- NOTE | 2017-12-18 08:27 | NUR ---
rounds: patient on bed eating breakfast needs feeding assist due to weakness. Medication given with apple sauce and compliant.
[2017-12-18 08:36] LABS: CHOLESTEROL 121 mg/dL (<200); HDL CHOLESTEROL 39 mg/dL (>55); LDL CHOLESTEROL 69 mg/dL (<100); TRIGLYCERIDES 73 mg/dL (30-150)
--- NOTE | 2017-12-18 10:55 | NUR ---
rounds: patient sleeping. no distress noted.
--- NOTE | 2017-12-18 11:01 | NUR ---
Nutrition Update Leonel Scale 15 noted. Pt admitted for ALOC. Diet: cardiac BMI: 50.4 kg/m2 RD to follow per nutrition care standards.
--- NOTE | 2017-12-18 12:00 | NUR ---
EEG: EEG done at bedside.
[2017-12-18 12:10] VITALS: BP_SYST 127
--- NOTE | 2017-12-18 14:04 | NUR ---
rounds: patient resting on bed and talking to case management.
--- NOTE | 2017-12-18 14:17 | NUR ---
CONSULTATION PAGED/CALLED Reason for Consultation: TACHY Person Who was Notified: SPOKE WITH JOSR FROM [facility] Consulting Physician: IS RAYON TESTER FOR DR LEON [phone] Roll Bucker Specialty: CARDIO Ordering Physician:
--- NOTE | 2017-12-18 15:15 | NUR ---
rounds: patient on bed sitting up. drinking ice tea. no distress noted.
--- NOTE | 2017-12-18 15:33 | NUR ---
Dietitian Recommendations * Recommend cardiac, CCHO diet LP, RD Please refer to Nutrition Assessment for details.
[2017-12-18 16:05] VITALS: BP_SYST 123
[2017-12-18] MEDS: INSULIN REGULAR, HUMAN 100 UNITS/ML, 10 ML VIAL (novoLIN R) SUBCUT PRN (16:53)
--- NOTE | 2017-12-18 16:55 | NUR ---
rounds: patient watching t.v. no distress noted.
--- NOTE | 2017-12-18 18:26 | NUR ---
closing notes: Patient on bed resting. Stable. Needs attended. Perez cath draining well by gravity. Family at bedside. Safety measures in placed. Call light within reach. Report will be given to night worker.
[2017-12-18 20:23] VITALS: BP_SYST 119
--- NOTE | 2017-12-18 20:55 | NUR ---
Flu Vac Administered Admin Flu vac as requested by patient. Denies allergy to iodine, shellfish and receives flu shots each year as per patient. Will monitor for reaction.
--- NOTE | 2017-12-18 21:10 | NUR ---
ALL DUE MEDS PO GIVEN.
[2017-12-18] MEDS: oxyCODONE HCL 10 MG TAB.ER.12H PO PRN ×2 (22:07→22:17)
--- NOTE | 2017-12-18 22:15 | NUR ---
PATIENT YELLING AND CALLING FOR PAIN MEDS DUE TO BACK AND LEG PAIN. OXYCODONE PO GIVEN. IN EMAR IT DOES NOT SHOW PAIN LEVEL / ASSESSMENT SECTION. IT GOES TO ADMINSTER RIGHT AWAY. CASTING AND PASTING SUPERVISOR NOTIFIED AND CHECKED. USED ANOTHER COMPUTER ITS THE SAME. CASTING AND PASTING SUPERVISOR CALLED [facility] .DONT KNOW.
--- NOTE | 2017-12-18 22:30 | NUR ---
HYGIENE /BATH RENDERED.
[2017-12-19 00:42] VITALS: BP_SYST 142
--- NOTE | 2017-12-19 05:35 | NUR ---
PAIN .PATIENT CALLED FOR PAIN MED. OXYCODONE 10MG PO GIVEN. NO PLACE TO ENTER IN COMPUTER LEVEL AND PAIN LOCATION.
[2017-12-19] MEDS: oxyCODONE HCL 10 MG TAB.ER.12H PO PRN ×3 (05:37→20:03)
[2017-12-19 07:25] LABS: HEMATOCRIT 32.9 % (36-48); HEMOGLOBIN 10.9 g/dL (12.0-16.0); MEAN CORPUSCULAR HEMOGLOBIN 29 pg (27-31); MEAN CORPUSCULAR HGB CONC 33 % (32-36); MEAN CORPUSCULAR VOLUME 86 fL (79.0-98.0); PLATELET COUNT (AUTO) 197 K/uL (130-430); RED CELL DISTRIBUTION WIDTH 15.5 % (9.0-15.0); WHITE BLOOD COUNT (AUTO) 10.1 K/uL (4.8-10.8)
[2017-12-19 07:53] VITALS: BP_SYST 123
--- NOTE | 2017-12-19 07:55 | NUR ---
Initial notes: Patient on bed awake, alert and oriented. Stable. On oxygen @2l via NC. I.V. access patent. Perez Cath draining well by gravity. Discussed plan of care. Safety measures in placed. Call light within reach. Report received from bedside.
[2017-12-19 08:10] LABS: INR 2.4 (0.8-1.2); PROTHROMBIN TIME 24.5 SECS (9.5-12.5)
[2017-12-19] MEDS: BACLOFEN 10 MG TABLET PO SCH ×3 (08:19→20:03)
[2017-12-19] MEDS: CARVEDILOL 6.25 MG TABLET (COREG) PO SCH (08:20)
[2017-12-19] MEDS: FUROSEMIDE 20 MG TABLET PO SCH (08:20)
[2017-12-19 08:22] LABS: CALCIUM 8.6 mg/dL (8.4-11.0); CREATININE 1.5 mg/dL (0.55-1.30); POTASSIUM 4.1 mmol/L (3.5-5.1)
[2017-12-19 08:40] LABS: BASOPHILS % (MANUAL) 0 % (0-2); EOSINOPHILS % (MANUAL) 0 % (0-7); LYMPHOCYTES % (MANUAL) 5 % (20-46); MONOCYTES % (MANUAL) 6 % (0-11)
[2017-12-19 11:24] VITALS: BP_SYST 126
--- NOTE | 2017-12-19 12:00 | NUR ---
rounds: patient complaining of back pain. Due pain meds given oral.
--- NOTE | 2017-12-19 12:51 | NUR ---
ROUNDS: Patient on bed resting. no distress noted.
[2017-12-19 15:26] VITALS: BP_SYST 107
[2017-12-19] MEDS ORDERED: FUROSEMIDE 20 MG/2 ML VIAL IVP ONE (15:30)
[2017-12-19] MEDS ORDERED: LACTULOSE 20 GM/30 ML UDC PO ONE (15:30)
[2017-12-19 15:36] VITALS: BP_SYST 142
[2017-12-19] MEDS ORDERED: MINERAL OIL 30 ML UDC PO ONE (15:45)
--- NOTE | 2017-12-19 16:09 | NUR ---
MHalle rounds: Dr. Pierce seen the patient with new orders.
[2017-12-19] MEDS: INSULIN REGULAR, HUMAN 100 UNITS/ML, 10 ML VIAL (novoLIN R) SUBCUT PRN (17:04)
--- NOTE | 2017-12-19 17:06 | NUR ---
BM: Patient had a soft and formed BM. Cleaned and changed underpad by HEAD ATHLETIC TRAINER/STRENGTH COACH. Repositioned for comfort.
--- NOTE | 2017-12-19 18:44 | NUR ---
Closing notes: Patient on bed resting. Stable. On oxygen @2l via NC. Perez cath draining well by gravity. Needs attended. Safety measures in placed. Call light within reach. Report will be given to night baker.
[2017-12-19 20:00] VITALS: BP_SYST 142
--- NOTE | 2017-12-19 20:00 | NUR ---
Initial Notes Received patient resting in bed, awake, alert, oriented. Patient denies any acute distress at this time. Breathing is even and unlabored. Vital signs stable. IV site patent/clean/dry. Incontinence care and pericare provided. Repositioned patient for comfort. Needs addressed. Educated patient regarding use of call light for assistance and fall precautions, patient verbalized understanding. Call light in hand, fall precautions in place. Will continue to monitor.
[2017-12-19] MEDS: FUROSEMIDE 20 MG/2 ML VIAL IVP SCH (20:04)
--- NOTE | 2017-12-19 22:00 | NUR ---
Nursing Notes Patient resting in bed, awake. Patient denies any acute distress or pain at this time. Breathing is even and unlabored. Incontinence care provided, patient having frequent bowel movements, brown, soft. Needs addressed. Call light in hand, fall precautions in place.
--- NOTE | 2017-12-20 | NUR ---
Nursing Notes Patient resting in bed with eyes closed, easily aroused. Patient denies any acute distress, pain, or needs at this time. Breathing is even and unlabored. Call light in hand, fall precautions in place. Will continue to monitor.
[2017-12-20 00:12] VITALS: BP_SYST 131
--- NOTE | 2017-12-20 00:12 | NUR ---
Rounds: Patient is asleep in bed, no signs or symptoms of acute distress noted. Respirations unlabored with even chest rise and fall while on 2L NC. Call light is with patient. Safety and fall precautions in place, will continue monitoring. Addendum: 12/21/17 at 0758 by Vahe Delatorre RN Correction: Disregard above note, wrong date and time.
--- NOTE | 2017-12-20 02:00 | NUR ---
Nursing Notes Patient resting in bed, awake. Patient denies any acute distress at this time. Breathing is even and unlabored. Perez draining to gravity. Medicated patient for pain per MD orders. Needs addressed. Call light in hand, will continue to monitor.
[2017-12-20] MEDS: oxyCODONE HCL 10 MG TAB.ER.12H PO PRN ×4 (02:02→21:02)
--- NOTE | 2017-12-20 02:30 | NUR ---
Endorsement of Care Endorsed care to Michelle CAMARGO. Patient in NAD, bedside report given.
--- NOTE | 2017-12-20 02:35 | NUR ---
took over care from nurse George and report given, pt. awake when checked in the room, no complaints at this time. call light within reach.
--- NOTE | 2017-12-20 04:02 | NUR ---
NOTES: pt. sleeping when made rounds. condition unchanged. continue to monitor.
--- NOTE | 2017-12-20 06:01 | NUR ---
NOTES; awakened, partial am care done, katherine care, no BM, Z tayla applied, repositioned.kept O2 @ 2l/nc. 2 IV lock intact and flushed. cardiac pattern on sinus tach with occasional PVC'S. no chest pain. call light within reach.
--- NOTE | 2017-12-20 06:40 | NUR ---
CLOSING NOTES; pt. went back to sleep, O2 continuous @ 2l/nc. in no acute distress. for further assistance, call light within reach, fall precautions observed, side rails up.
--- NOTE | 2017-12-20 07:40 | NUR ---
report given to nurse Madrigal.
[2017-12-20 08:00] VITALS: BP_SYST 135
--- NOTE | 2017-12-20 08:00 | NUR ---
Opening Note received report from manager night RN, A&Ox4, respirations even and unlabored on 2L nasal canula, pt reports pain controlled, denies any SOB, IV sites clean, dry, and intact, schwartz catheter draining to gravity, tele monitor in place, pt educated on use of call light and asked to call for assistance, pt verbalized understanding, call light in reach, bed in low position, bed alarm on, room close to nurses station, fall and aspiration precautions in place.
[2017-12-20] MEDS: MINERAL OIL 30 ML UDC PO SCH (08:41)
[2017-12-20] MEDS: FUROSEMIDE 20 MG/2 ML VIAL IVP SCH ×2 (08:42→22:50)
[2017-12-20] MEDS: BACLOFEN 10 MG TABLET PO SCH ×3 (08:42→22:46)
--- NOTE | 2017-12-20 08:44 | NUR ---
Pain Management/Medication pt complaint of pain 10/10 to lower abdomen, pt repositioned self, pt still having pain 10/10, PRN oxycontin indicated, pt educated on use and side effects of PRN oxycontin, pt verbalized understanding, tolerated medication administration well, no acute distress noted, fall and aspiration precautions in place.
--- NOTE | 2017-12-20 08:45 | NUR ---
Medication pt educated on medication use and side effects, pt verbalized understanding, pt tolerated medication administration well, no acute distress noted, fall and aspiration precautions in place.
--- NOTE | 2017-12-20 09:33 | NUR ---
Discharge Planning: DCP faxed referral to [facility] (f [phone] p [phone]), DCP to follow up. Addendum: 12/20/17 at 1031 by Keira Grubbs DP Montserrat (p [phone]) from [facility] (f [phone] p [phone]), rj she will come to valuate pt today. DCP to follow up.
[2017-12-20] MEDS: CARVEDILOL 6.25 MG TABLET (COREG) PO SCH ×2 (09:34→22:51)
[2017-12-20] MEDS: INSULIN REGULAR, HUMAN 100 UNITS/ML, 10 ML VIAL (novoLIN R) SUBCUT PRN ×3 (11:46→23:02)
--- NOTE | 2017-12-20 12:08 | NUR ---
Notes pt requesting to use bedpan, pt assisted to use bedpan, pt not able to go to bathroom at this time, pt complaint of feeling hot, temp 97.1, cool cloth provided, blankets removed, pt reports pain controlled, denies any SOB, no acute distress noted, fall and aspiration precautions in place.
[2017-12-20 13:00] VITALS: BP_SYST 121
--- NOTE | 2017-12-20 13:10 | NUR ---
RN Rounds pt resting in bed, respirations even and unlabored, pt reports pain is controlled at this time, pt reports that cool cloth was effective in relieving feeling of warmth, fall and aspiration precautions in place.
--- NOTE | 2017-12-20 14:57 | NUR ---
Pain Management/Medication pt complaint of pain 10/29 to abdomen, pt educated on use and side effects of PRN pain medication, pt verbalized understanding, BP 120/89, HR 109, tolerated medication administration well, no acute distress noted, fall and aspiration precautions in place.
--- NOTE | 2017-12-20 16:15 | NUR ---
DC PLANNING Spoke w pt @ bedside, aware & agreeable w plan to dc to [facility]. Agreeable w dc today if accepted. States has not been to SNF in past, will consider if not accepted to [facility].
--- NOTE | 2017-12-20 16:25 | NUR ---
Wound Evaluation: Wound Consult ordered for Low Leonel Score. Patient evaluated for a low Leonel score of 15. Patient was awake, alert, oriented, and received in a Ceferino Bed with an IsoFlex BRIANNA mattress. Patient is able to turn in bed. Skin is fair (-). Recommend encourage and assist patient as needed with repositioning every 2 hours with pillow support. Elevate, off-load and float bilateral heels with pillows (elevate bilateral lower extremities as tolerated). Offload pressure areas with pillows for pressure re-distribution. Perform skin care and monitor skin integrity Q shift. Use moisture barrier cream on moisture susceptible areas QID and PRN for soiling. Skin assessment: 1. Left lower extremity: Firm edema, 3+, nonpitting. Appears to be Lymphedema. Foot has erythema, calor, and 2+ nonpitting edema. No odor, no drainage, no weeping. Skin is intact. 2. Lower extremity: Firm edema, 2+, nonpitting. Appears to be Lymphedema. Foot has erythema, calor, and 2+ nonpitting edema. No odor, no drainage, no weeping. Skin is intact. Recommend: No dressings needed. Continue to monitor lower extremities every shift for worsening condition. Contact wound care nurse if extremities open, drain, or worsen. Elevate bilateral lower extremities as tolerated. 3. Right great toe, dorsal aspect: Chronic wound, present on admission. Appears to have been a linear shape wound, which is approximated with 100% black scab. No odor, no drainage. Periwound intact. No erythema present. Dry, stable. Wound measures 0.4 cm x 1.0 cm. Recommend: No dressing needed. Continue to monitor site every shift for worsening condition. Contact wound care nurse if site opens, drains, or worsens. Will continue to follow as a Leonel.
--- NOTE | 2017-12-20 16:41 | NUR ---
Notes wound care nurse Abe RN at bedside completing assessment, pt education given, pt tolerated well, Dr. Pierce at bedside examining pt, fall and aspiration precautions in place.
[2017-12-20] MEDS: WARFARIN SODIUM 2 MG TABLET PO SCH (17:34)
--- NOTE | 2017-12-20 17:36 | NUR ---
Medication pt educated on medication use and side effects, pt verbalized understanding, tolerated medication administration well, fall and aspiration precautions in place.
[2017-12-20 18:00] VITALS: BP_SYST 117
--- NOTE | 2017-12-20 19:05 | NUR ---
Closing Note pt resting in bed, A&Ox4, respirations even and unlabored on 2L nasal canula, pt reports pain is controlled, denies any nausea or SOB, no acute distress noted, IV site clean, dry, and intact, tele monitor in place, schwartz catheter draining to gravity, pt educated on use of call light and asked to call for assistance, pt verbalized understanding, call light in reach, bed in low position, bed alarm on, fall and aspiration precautions in place, care endorsed to El CAMARGO.
--- NOTE | 2017-12-20 19:36 | NUR ---
Initial note: Received handoff report from dayshift RN. Patient is awake in bed, no signs or symptoms of acute distress noted. Alert and oriented x4. Bilateral lymphedema noted. Perez catheter noted draining clear yellow urine to gravity. 2L NC in place, patient tolerating well. Safety and fall precautions in place. Will continue with plan of care.
[2017-12-20 20:55] VITALS: BP_SYST 127
--- NOTE | 2017-12-20 22:03 | NUR ---
Rounds: Patient is awake in bed watching TV, does not show any signs or symptoms of acute distress. Call light is with patient, safety and fall precautions in place. Will continue monitoring.
--- NOTE | 2017-12-21 00:12 | NUR ---
Rounds: Patient is asleep in bed, no signs or symptoms of acute distress noted. Respirations unlabored with even chest rise and fall while on 2L NC. Call light is with patient. Safety and fall precautions in place, will continue monitoring.
[2017-12-21 00:50] VITALS: BP_SYST 110
[2017-12-21] MEDS: oxyCODONE HCL 10 MG TAB.ER.12H PO PRN ×4 (03:14→22:40)
--- NOTE | 2017-12-21 03:14 | NUR ---
Pain management: Patient complaining of 9/10 back pain. PRN Oxycontin indicated. Educated patient regarding indications and side effects, patient verbalized understanding. Administered medication per MD order. Call light is with patient, safety and fall precautions in place. Will continue to monitor.
--- NOTE | 2017-12-21 04:36 | NUR ---
Rounds: Patient is sleeping, does not show signs or symptoms of acute distress. Call light is with patient, safety and fall precautions in place. Will continue monitoring.
--- NOTE | 2017-12-21 06:25 | NUR ---
Closing note: Patient is sleeping in bed, does not show signs or symptoms of acute distress. Respirations even and unlabored on 2L NC. Perez catheter remains draining to gravity. All needs met and attended to. Will endorse care to dayshift RN.
[2017-12-21 07:03] LABS: ALBUMIN 2.7 g/dL (3.4-4.8); CALCIUM 8.7 mg/dL (8.4-11.0); CREATININE 1.22 mg/dL (0.55-1.30); POTASSIUM 3.8 mmol/L (3.5-5.1); TOTAL BILIRUBIN 0.8 mg/dL (0.0-1.0)
[2017-12-21 07:09] LABS: INR 1.8 (0.8-1.2); PROTHROMBIN TIME 18.4 SECS (9.5-12.5)
[2017-12-21 07:13] LABS: BASOPHILS % (AUTO) 0.4 % (0.0-2.0); EOSINOPHILS # (AUTO) 0.1 K/uL (0.0-0.4); EOSINOPHILS % (AUTO) 1.1 % (0.0-4.0); HEMATOCRIT 31.2 % (36-48); HEMOGLOBIN 10.1 g/dL (12.0-16.0); LYMPHOCYTES # (AUTO) 0.8 K/uL (1.0-5.5); LYMPHOCYTES % (AUTO) 7.7 % (20.5-51.5); MEAN CORPUSCULAR HEMOGLOBIN 29 pg (27-31); MEAN CORPUSCULAR HGB CONC 33 % (32-36); MEAN CORPUSCULAR VOLUME 89 fL (79.0-98.0); MONOCYTES # (AUTO) 0.6 K/uL (0.0-1.0); MONOCYTES % (AUTO) 6.5 % (1.7-9.3); NEUTROPHILS # (AUTO) 8.4 K/uL (1.8-7.7); NEUTROPHILS % (AUTO) 84.3 % (40.0-70.0); PLATELET COUNT (AUTO) 180 K/uL (130-430); RED CELL DISTRIBUTION WIDTH 15.2 % (9.0-15.0); WHITE BLOOD COUNT (AUTO) 9.9 K/uL (4.8-10.8)
--- NOTE | 2017-12-21 07:45 | NUR ---
opening note pt asleep- equal chest rise noted. iv saline locked noted. Perez cath noted. bed alarm in place with bed in the lowest position, call light visibly within reach.
[2017-12-21 08:00] VITALS: BP_SYST 140
[2017-12-21] MEDS: MINERAL OIL 30 ML UDC PO SCH (08:21)
[2017-12-21] MEDS: BACLOFEN 10 MG TABLET PO SCH ×3 (08:21→20:43)
[2017-12-21] MEDS: CARVEDILOL 6.25 MG TABLET (COREG) PO SCH ×2 (08:22→20:44)
[2017-12-21] MEDS: FUROSEMIDE 20 MG/2 ML VIAL IVP SCH ×2 (08:22→20:43)
--- NOTE | 2017-12-21 08:27 | NUR ---
am meds morning meds given. pt tolerated well, no distress noted. safety maintained.
[2017-12-21 11:11] VITALS: BP_SYST 106
--- NOTE | 2017-12-21 11:45 | NUR ---
PATIENT REFUSED TREATMENT DUE TO NOT FEELING WELL.
[2017-12-21] MEDS: INSULIN REGULAR, HUMAN 100 UNITS/ML, 10 ML VIAL (novoLIN R) SUBCUT PRN ×2 (11:51→17:24)
--- NOTE | 2017-12-21 11:53 | NUR ---
blood sugar bs- 209 pt given 2 units regular insulin given.
--- NOTE | 2017-12-21 11:54 | NUR ---
DC PLANNING Called & spoke w Montserrat @ [facility], ph [phone], to f/u on insurance auth. States has not heard back from insurance will f/u & call me when gets answer from insurance. Addendum: 12/21/17 at 1524 by Krystal Ahuja RN Have not received auth for [facility] yet. Spoke w pt @ bedside regarding SNF if not auth by insurance for [facility]. Per pt agreeable w SNF if auth not given. Gave pt list of SNF's: [facility], [facility], [facility], [facility], [facility], & [facility]. [facility] will review w dtr & give us her preference.
[2017-12-21] MEDS ORDERED: BISACODYL 5 MG TABLET.DR (DULCOLAX) PO ONE (12:45)
[2017-12-21] MEDS ORDERED: IPRATROPIUM/ALBUTEROL SULFATE 3 ML AMPUL.NEB INH PRN (12:45)
[2017-12-21] MEDS ORDERED: DOCUSATE SODIUM 250 MG CAPSULE PO ONE (12:45)
[2017-12-21] MEDS ORDERED: IPRATROPIUM/ALBUTEROL SULFATE 3 ML AMPUL.NEB INH ONE (13:00)
[2017-12-21] MEDS ORDERED: IPRATROPIUM/ALBUTEROL SULFATE 3 ML AMPUL.NEB INH SCH (13:00)
--- NOTE | 2017-12-21 13:47 | NUR ---
Pulmo consult called: for Dr. Pastor, regarding respiratory failure, ordered by Dr. Pierce, spoke with Yuliet.
--- NOTE | 2017-12-21 14:08 | NUR ---
med pass 1x dose po colace/ dulcolax given. baclofen po also given at this itme. safety maintained
[2017-12-21] MEDS: IPRATROPIUM/ALBUTEROL SULFATE 3 ML AMPUL.NEB INH SCH ×2 (15:00→15:35)
[2017-12-21 15:19] VITALS: BP_SYST 140
--- NOTE | 2017-12-21 15:52 | NUR ---
Nutrition F/U Admitting Diagnosis ALOC Reviewed Pertinent Medical/Surgical Hx Medical Record Patient Medical History Comment: PMH: chronic CHF, HTN, DM type 2, uterine CA s/p hysterectomy and radiotherapy, PE, chronic pain syndrome, CKD, diabetic nephropathy, lymphedema of both legs, chronic cellulitis of both lower legs, morbid obesity, TIAs, anemia/iron deficiency and anemia of chronic illness, large ventral hernia, protein malnutrition per MD notes Per MD notes 12/21/17: pt found w/ acute toxic and metabolic encephalopathy, coumadin toxicity, protein malnutrition Subjective Information Pt seen resting in bed at time of RD visit. Pt reported that she has been eating better today, but that yesterday, d/t severe pain, her appetite was low. Pt reported intakes of 100% of cereal, peaches, and Azeri toast at breakfast, and pt was working on lunch at time of RD visit. Pt complained that orellana soup had gotten cold as she was on the phone; RD offered to heat up soup in the microwave; pt agreeable. Pt reported dislike of eggs -- RD to note in [employer]. Pt reported last BM was 2 days ago. Pt was unable to recall UBW. RD encouraged pt to try to increase PO intakes. Current diet remains appropriate. Pt declined nutrition education. Current Diet Order/Nutrition Support Cardiac, CCHO x3 days Patient/Significant Other Unable To Verbalize Education Provided Not Indicated Pertinent Medications coumadin, mineral oil, lasix, SSI Pertinent Labs BG 155 H, POC BG 209 H, BUN 31 H, CRE 1.22 WNL (improved), ALB 2.7 L, H/H 10.1 L/31.2 L, HgA1c 8.8 H Height (Feet) 4 feet Height (Inches) 10.00 inches Weight (Pounds) 240 pounds (12/18/17) Weight (Calculated Kilograms) 108.672766 kilograms Patient Weight 108.862 kg Body Mass Index 50.15 kg/m2 %IBW 248 [place]/Adjusted Body Weight IBW: 96 lb, 44 kg. Adj IBW (obesity): 132 lb, 60 kg Weight Status Morbidly Obese Food Allergies Unable to verify Usual Diet At Home Regular per nursing notes Skin Integrity Comment: Leonel scale: 15; per Pension Manager note 12/20/17: 1. Left lower extremity: Firm edema, 3+, nonpitting. Appears to be Lymphedema. Foot has erythema, calor, and 2+ nonpitting edema. No odor, no drainage, no weeping. Skin is intact. 2. Lower extremity: Firm edema, 2+, nonpitting. Appears to be Lymphedema. Foot has erythema, calor, and 2+ nonpitting edema. No odor, no drainage, no weeping. Skin is intact. 3. Right great toe, dorsal aspect: Chronic wound, present on admission. BLE 3+ pitting edema per nursing notes Current % PO 51% average x7 meals Estimated Energy Expenditure (kcals/day) 7196-4553 kcal/day (25-30 kcal/kg Adj IBW for maintenance) Estimated Protein Required (g/day) 48-60 gm/day (0.8-1 gm/kg Adj IBW for maintenance) Estimated Fluid Required (l/day) Per MD (CHF) Problem/Etiology/Signs/Symptoms Inadequate nutritional intakes related to unknown etiology as evidenced by negligible PO intake records, and inability to meet optimal nutritional needs. *ongoing Altered nutrition-related labs related to endocrine dysfunction as evidenced by elevated BG and POC BG lab values. *ongoing Expected Outcomes/Goals - Monitor appetite and PO intakes w/ goal of pt meeting at least 75% of estimated nutritional needs, labs trending WNL, normal GI function, and skin integrity/wt maintenance Dietitian Recommendations * Recommend continuing cardiac, CCHO diet Follow Up Moderate Risk: F/U in 3-5 days
--- NOTE | 2017-12-21 16:03 | NUR ---
Dietitian Recommendations * Recommend continuing cardiac, CCHO diet LP, RD Please refer to Nutrition F/U for details.
--- NOTE | 2017-12-21 16:08 | NUR ---
PAIN MED PO OXYCONTIN GIVEN AT THIS TIME. SAFETY MAINTAINED.
[2017-12-21 17:19] LABS: TOTAL IRON BIND. CAPACITY 219 ug/dL (250-450)
[2017-12-21] MEDS: WARFARIN SODIUM 2 MG TABLET PO SCH (17:23)
[2017-12-21] MEDS ORDERED: IPRATROPIUM BROM 0.5 MG/2.5 ML VIAL.NEB (ATROVENT) INH PRN (17:30)
--- NOTE | 2017-12-21 17:30 | NUR ---
med pass po Coumadin given at this time. blood sugar checked as well
[2017-12-21] MEDS ORDERED: FUROSEMIDE 20 MG/2 ML VIAL IVP ONE (18:00)
--- NOTE | 2017-12-21 19:06 | NUR ---
closing note all need met through shift, safety maintained, will endorse care to shift supervisor.
[2017-12-21 19:40] VITALS: BP_SYST 137
--- NOTE | 2017-12-21 19:45 | NUR ---
INITIAL NOTES: PATIENT IN BED AWAKE ORIENTED X3. JUST FINISHED HYGIENE DUE TO INCONTINENT OF STOOL. CASILLAS CATHETER IN PLACE ,WITH CLEAR YELLOW URINE.VITAL SIGNS TAKEN STABLE. BOTH IV LINES INTACT. STATED NOT FEELING WELL HAD 3X LOOSE BM.MORBID OBESE. HAS LYMPH EDEMA.SWELLING GETTING LESS.DRINKING FLUIDS WELL. DENIES SOB NOR CHEST PAIN.JUST ABDOMINAL DISCOMFORTS. CALL LIGHT WITHIN REACH. BED IN LOW POSITION. IRREGULAR RHYTHM. BED ALARM ON. RE EDUCATED TO USE OXYGEN AT ALL TIMES. WILL MONITOR CLOSELY.
[2017-12-21] MEDS: DOCUSATE SODIUM 250 MG CAPSULE PO SCH (20:45)
--- NOTE | 2017-12-21 20:45 | NUR ---
meds admin: all due meds given without difficulty. talking to daughter via cell phone.
--- NOTE | 2017-12-21 22:40 | NUR ---
PAIN : PATIENT COMPLAIN OF PAIN. OXYCONTIN 10MG PO GIVEN.
--- NOTE | 2017-12-21 23:15 | NUR ---
HYGIENE DONE BY 2 STAFFS. REPOSITIONED.
--- NOTE | 2017-12-21 23:45 | NUR ---
REASSESS PAIN: STATED05/29. TALKING TO FAMILY VIA CELL PHONE.
[2017-12-22 00:56] VITALS: BP_SYST 115
--- NOTE | 2017-12-22 01:30 | NUR ---
ROUNDS: PATIENT RESTING ,FEELS COLD. WARM BLANKETS PROVIDED. DENIES PAIN. OXYGEN PLACED. ELEVATED FEET ON PILLOWS.
--- NOTE | 2017-12-22 03:00 | NUR ---
ROUNDS: PATIENT SELF TURN. RESTING WITH EYES CLOSE. WITH O2 ON. BED ALARM ON. CALL LIGHT WITHIN REACH.
--- NOTE | 2017-12-22 04:55 | NUR ---
PAIN: PATIENT COMPLAIN OF LOWER ABDOMINAL AREA/BACK AND LEGS. LEVEL 7/10. OXYCONTIN 10MG PO GIVEN.
[2017-12-22] MEDS: oxyCODONE HCL 10 MG TAB.ER.12H PO PRN ×3 (04:56→18:23)
--- NOTE | 2017-12-22 05:45 | NUR ---
BOWEL MOVEMENT: PATIENT CALLED FOR BED GRANADOS.HAS SMALL LOOSE VERY FOUL SMELLY STOOL. JOSSE AND CASILLAS CARE DONE.
--- NOTE | 2017-12-22 05:59 | NUR ---
PAIN RE ASSESSMENT: PAIN LEVEL 5/10. ON BED GRANADOS THIS TIME.
--- NOTE | 2017-12-22 06:15 | NUR ---
PORTABLE CXR DONE.
--- NOTE | 2017-12-22 06:50 | NUR ---
CLOSING: ALL NEEDS WERE ATTENDED.SLEPT AT SHORT INTERVALS. ABDOMINAL AND BACK PAIN FAIRLY CONTROLLED BY OXYCONTIN . SELF TURN. MOANING AT TIMES DUE TO GENERALIZED BODY ACHES AND DISCOMFORTS.SALINE LOCKS PATENT.FEELS SLIGHT NAUSEOUS RELIEVED BY ICE CHIPS. OBESE. LLE SWELLING. VITAL SIGNS STABLE. HAS EXERTIONAL DYSPNEA AT TIMES. SAFETY MEASURES OBSERVED.
--- NOTE | 2017-12-22 08:00 | NUR ---
INITIAL NOTE PT LAYING TO SIDE IN BED, AAO X4, NO S/S ACUTE DISTRESS, PT REQUESTING HER SCHEDULED BACLOFEN, WILL FOLLOW UP WITH AM MEDICATIONS. NASAL CANULA IN PLACE WITH O2 AT 2 LITERS, EDEMA NOTED TO BILATERAL LOWER EXTREMITIES, CASILLAS CATHETER NOTED, DRAINING TO GRAVITY. CALL LIGHT WITHIN REACH, SAFETY PRECAUTIONS IN PLACE, WILL FOLLOW UP
[2017-12-22 08:05] LABS: INR 2.2 (0.8-1.2); PROTHROMBIN TIME 22.6 SECS (9.5-12.5)
[2017-12-22 08:09] LABS: CALCIUM 8.9 mg/dL (8.4-11.0); CREATININE 1.25 mg/dL (0.55-1.30); POTASSIUM 3.6 mmol/L (3.5-5.1)
[2017-12-22 08:13] VITALS: BP_SYST 151
[2017-12-22 08:25] LABS: BASOPHILS % (AUTO) 0.2 % (0.0-2.0); MONOCYTES # (AUTO) 0.5 K/uL (0.0-1.0)
[2017-12-22] MEDS: MINERAL OIL 30 ML UDC PO SCH (09:00)
[2017-12-22 09:09] LABS: EOSINOPHILS # (AUTO) 0.2 K/uL (0.0-0.4); NEUTROPHILS # (AUTO) 8.8 K/uL (1.8-7.7)
[2017-12-22 09:18] LABS: EOSINOPHILS % (AUTO) 1.7 % (0.0-4.0); HEMOGLOBIN 10.7 g/dL (12.0-16.0); LYMPHOCYTES # (AUTO) 0.6 K/uL (1.0-5.5); LYMPHOCYTES % (AUTO) 5.5 % (20.5-51.5); MEAN CORPUSCULAR HEMOGLOBIN 29 pg (27-31); MEAN CORPUSCULAR HGB CONC 32 % (32-36); MEAN CORPUSCULAR VOLUME 88 fL (79.0-98.0); MONOCYTES % (AUTO) 4.6 % (1.7-9.3); PLATELET COUNT (AUTO) 194 K/uL (130-430); RED BLOOD CELL COUNT(AUTO) 3.75 MIL/uL (4.2-6.2); RED CELL DISTRIBUTION WIDTH 15.6 % (9.0-15.0); WHITE BLOOD COUNT (AUTO) 10.1 K/uL (4.8-10.8)
[2017-12-22] MEDS: BACLOFEN 10 MG TABLET PO SCH ×3 (09:26→21:41)
[2017-12-22] MEDS: DOCUSATE SODIUM 250 MG CAPSULE PO SCH ×2 (09:26→21:41)
[2017-12-22] MEDS: CARVEDILOL 6.25 MG TABLET (COREG) PO SCH ×2 (09:27→21:46)
[2017-12-22] MEDS: FUROSEMIDE 20 MG/2 ML VIAL IVP SCH ×2 (09:28→21:41)
--- NOTE | 2017-12-22 10:00 | NUR ---
ROUNDS PT ASSISTED TO BED GRANADOS, STATES SHE HAS TO HAVE BM. LEFT ON BED GRANADOS FOR A FEW MINUTES, NO BM NOTED. WILL FOLLOW UP
[2017-12-22] MEDS ORDERED: FUROSEMIDE 20 MG/2 ML VIAL IVP ONE (10:15)
[2017-12-22] MEDS: INSULIN REGULAR, HUMAN 100 UNITS/ML, 10 ML VIAL (novoLIN R) SUBCUT PRN ×2 (11:24→18:25)
--- NOTE | 2017-12-22 11:30 | NUR ---
BLOOD SUGAR 215, COVERED PER SLIDING SCALE. PT TOLERATED WELL. ASSISTED TO SLIGHTLY REPOSITION TO OPPOSITE SIDE, AIRPORT OPERATIONS SUPERVISOR AT BEDSIDE TO ASSIST PT ON BED PAIN, WILL FOLLOW UP
--- NOTE | 2017-12-22 12:30 | NUR ---
PAIN MANAGEMENT PT C/O PAIN TO ABD AT HEALED INCISION SITE. ADMINISTERED PAIN MEDICATION, WILL FOLLOW UP
--- NOTE | 2017-12-22 15:45 | NUR ---
MED PASS ADMINISTERED DUE MEDICATION BACLOFEN. PT LAYING TO SIDE, FAMILY AT BEDSIDE, TALKING. NO S/S OF ACUTE DISTRESS. PT REQUEST ICE, PROVIDED PT WITH ICE, CALL LIGHT WITHIN REACH, WILL FOLLOW UP
--- NOTE | 2017-12-22 16:12 | NUR ---
Casemgt: Per dc coordinator Tea Crockett at [facility] admissions says auth is still pending with Aman Mendez. I have asked pt and her family to call [facility] also, as auth is still pending and pt was accepted by [facility] yesterday pending authorization from [facility]. SANCHEZ CAMARGO
[2017-12-22 16:29] VITALS: BP_SYST 117
--- NOTE | 2017-12-22 16:45 | NUR ---
Case mgt: I called Rob Guzman and s/w Tea in admissions--she said they have been calling Aman Mendez on the phone and auth still pending. She will f/u again tomorrow. Pt's sister called me to say she s/w Aman Mendez also and they told her Rob Guzman can call them tomorrow to receive verbal auth. I did relay this information to Tea in admissions at [facility]. SANCHEZ CAMARGO
--- NOTE | 2017-12-22 17:00 | NUR ---
BLOOD SUGAR 221, COVERED PER SLIDING SCALE. FAMILY AT BEDSIDE, PER PT REQUEST FAMILY AND PT UPDATED ON MOST RECENT LAB VALUES AND A1C.
[2017-12-22] MEDS ORDERED: LISINOPRIL 5 MG TABLET PO ONE (17:45)
[2017-12-22] MEDS ORDERED: BISACODYL 5 MG TABLET.DR (DULCOLAX) PO PRN (17:45)
[2017-12-22] MEDS ORDERED: WARFARIN SODIUM 2 MG TABLET PO SCH (18:00)
[2017-12-22] MEDS ORDERED: NEPHROVITE, (FOLIC ACID/VITAMIN B COMP W-C 1 TAB) PO ONE (18:00)
[2017-12-22] MEDS ORDERED: DEXTROSE 50% JECT 50 ML DISP.SYRIN IVP PRN (18:00)
[2017-12-22] MEDS: SOD FERRIC GLUC COMPLEX/SUC 125 MG in NS 100 ML IV SCH (18:23)
[2017-12-22] MEDS: WARFARIN SODIUM 1 MG TABLET PO SCH (18:24)
--- NOTE | 2017-12-22 18:46 | NUR ---
CLOSING NOTE/ CHANGE IN SKIN CONDITION ADMINISTERED PAIN MEDICATION AND SCHEDULED MEDICATIONS, DR EDGAR GELLER. PT SOILED, RESIDENT INTERN CHANGING PT NOTED OPEN AREA ON RIGHT THIGH, WOUND ASSESSED AND DOCUMENTED, UNABLE TO FIND CAMERA WILL ENDORSE TO FOLLOWING SHIFT. IV SITE TO LFA INFILTRATED, IV CATHETER REMOVED TIP INTACT. ALL NEEDS ATTENDED TO THROUGH OUT SHIFT, SAFETY PRECAUTIONS MAINTAINED, CALL LIGHT WITHIN REACH, PT FINISHING DINNER AND WATCHING TV, WILL ENDORSE CARE TO FOLLOWING SHIFT
[2017-12-22 19:50] VITALS: BP_SYST 140
--- NOTE | 2017-12-22 20:00 | NUR ---
INITIAL NOTES: RECEIVED BEDSIDE REPORT. PATIENT IN BED AWAKE ORIENTED X3. MOVES UPPER EXTREMITIES FREELY. LOWER LEGS VERY WEAK DUE TO DISEASE PROCESS. SALINE LOCK X2 IN TACT. VITAL SIGNS TAKEN STABLE.CASILLAS CATH IN PLACE WITH CLEAR FRED URINE.CALL LIGHT WITHIN REACH. BED IN LOW POSITION. HAS IST DEGREE AV BLOCK WITH TRIGEMINY PVC. DENIES CHEST PAIN NOR SOB THIS TIME. WILL MONITOR CLOSELY.
--- NOTE | 2017-12-22 21:40 | NUR ---
MEDS ADMIN/ULTRASOUND/HYGIENE; DUE MEDS GIVEN. BLOOD SUGAR 229MG/DL.REFUSE INSULIN COVERAGE DUE TO NPO POST MIDNIGHT AND DID NOT HAVE MUCH DINNER.DISCUSSED NPO POST MIDNIGHT DUE TO ULTRASOUND OF ABDOMEN WITH UNDERSTANDING. JOSSE CARE DONE BY UTILITY TECHNICIAN ,HAS BOWEL MOVEMENT.
--- NOTE | 2017-12-22 22:30 | NUR ---
PATIENT CALLED ,FEELS FUNNY FROM HER CASLILAS CATHETER. PLACED CATH IN THE RIGHT SECUREMENT. CASILLAS CATHETER CARE DONE.
--- NOTE | 2017-12-23 00:30 | NUR ---
PAIN: OXYCONTIN 10MG PO GIVEN BY FLEET SALES ASSOCIATE FOR PAIN. NOTHING BY MOUTH INITIATED FOR ULTRASOUND OF ABDOMEN.
[2017-12-23] MEDS: oxyCODONE HCL 10 MG TAB.ER.12H PO PRN ×3 (00:32→17:23)
[2017-12-23 01:04] VITALS: BP_SYST 117
--- NOTE | 2017-12-23 02:30 | NUR ---
RESTING QUITELY THIS ROUND. SELF TURN.
--- NOTE | 2017-12-23 05:00 | NUR ---
PATIENT CALLED .WANTS TO KNOW WHAT PROCEDURE TO BE DONE THIS AM. DISCUSSED ABOUT ABDOMINAL ULTRASOUND WITH UNDERSTANDING.
[2017-12-23] MEDS: INSULIN REGULAR, HUMAN 100 UNITS/ML, 10 ML VIAL (novoLIN R) SUBCUT PRN ×3 (06:22→17:25)
--- NOTE | 2017-12-23 06:45 | NUR ---
CALLED KNIFE OPERATOR IF SHE CAN DO HER IST SINCE A NEED OF PAIN MED. SAID PATIENT CAN HAVE PAIN MED WITH SIPS OF WATER. AND SHE WILL COME SOON. OXYCONTIN PO GIVEN.
[2017-12-23 06:55] LABS: INR 2.2 (0.8-1.2); PROTHROMBIN TIME 23.1 SECS (9.5-12.5)
--- NOTE | 2017-12-23 07:00 | NUR ---
CLOSING: ALL NEEDS WERE ATTENDED PHYSICALLY ,PSYCHOSOCIALLY AND PHYSIOLOGICALLY. NO ACUTE DISTRESS CARDIOPULMONARY. KEPT NPO FOR US OF ABDOMEN. VERBALIZED NOT NOT WANTING TO DO ULTRASOUND. AM RN AWARE. ALL JOSSE CARE DONE. PAIN MEDS GIVEN.
[2017-12-23 07:08] LABS: CALCIUM 8.8 mg/dL (8.4-11.0); CREATININE 1.2 mg/dL (0.55-1.30); POTASSIUM 3.7 mmol/L (3.5-5.1)
[2017-12-23 07:37] LABS: BASOPHILS # (AUTO) 0.1 K/uL (0.0-0.2); BASOPHILS % (AUTO) 0.7 % (0.0-2.0); EOSINOPHILS # (AUTO) 0.2 K/uL (0.0-0.4); EOSINOPHILS % (AUTO) 1.9 % (0.0-4.0); HEMATOCRIT 33.2 % (36-48); LYMPHOCYTES # (AUTO) 0.6 K/uL (1.0-5.5); LYMPHOCYTES % (AUTO) 7.3 % (20.5-51.5); MEAN CORPUSCULAR HEMOGLOBIN 29 pg (27-31); MEAN CORPUSCULAR HGB CONC 33 % (32-36); MEAN CORPUSCULAR VOLUME 89 fL (79.0-98.0); MONOCYTES # (AUTO) 0.5 K/uL (0.0-1.0); NEUTROPHILS # (AUTO) 6.8 K/uL (1.8-7.7); NEUTROPHILS % (AUTO) 84.1 % (40.0-70.0); PLATELET COUNT (AUTO) 193 K/uL (130-430); RED BLOOD CELL COUNT(AUTO) 3.74 MIL/uL (4.2-6.2); WHITE BLOOD COUNT (AUTO) 8.2 K/uL (4.8-10.8)
--- NOTE | 2017-12-23 07:59 | NUR ---
INITIAL NOTE PT LAYING TO SIDE IN BED, SPEAKING ON PHONE WITH FAMILY MEMBER, AAO X4, NO S/S OF ACUTE DISTRESS, REPORTS PAIN AT 7 DUE TO PAIN MEDICATION JUST BEING GIVEN. NASAL CANULA IN PLACE WITH O2 AT 2 LITERS, IV TO RFA INTACT, SALINE LOCKED. CASILLAS CATHETER IN PLACE AND DRAINING TO GRAVITY. DISCUSSED PLAN OF CARE WITH PATIENT, US ABD TODAY, WHY PT WAS NPO AFTER MIDNIGHT. PT VERBALIZED UNDERSTANDING, UNHAPPY THAT IT WAS NOT EXPLAINED BY PREVIOUS SHIFT. LISTENED TO PT CONCERNS, PT STATES SHE IS WILLING TO CONTINUE WITH ULTRASOUND BUT IN THE FUTURE SHE WOULD LIKE TO BE UPDATED APPROPRIATELY. US TECH AT BEDSIDE FOR PROCEDURE WITH FOLLOW UP.
[2017-12-23 08:08] VITALS: BP_SYST 133
[2017-12-23] MEDS: DOCUSATE SODIUM 250 MG CAPSULE PO SCH (08:39)
[2017-12-23] MEDS: BACLOFEN 10 MG TABLET PO SCH ×3 (08:39→20:03)
[2017-12-23] MEDS: CARVEDILOL 6.25 MG TABLET (COREG) PO SCH ×2 (08:40→20:05)
[2017-12-23] MEDS: FUROSEMIDE 20 MG/2 ML VIAL IVP SCH (08:42)
[2017-12-23] MEDS ORDERED: NEPHROVITE, (FOLIC ACID/VITAMIN B COMP W-C 1 TAB) PO SCH (09:00)
[2017-12-23] MEDS ORDERED: LISINOPRIL 5 MG TABLET PO SCH (09:00)
--- NOTE | 2017-12-23 10:00 | NUR ---
ROUNDS PT LAYING TO SIDE IN BED, APPEARS TO BE SLEEPING DEEPLY, EVEN RISE AND FALL OF CHEST NOTED. NO S/S OF ACUTE DISTRESS, CALL LIGHT WITHIN REACH, WILL FOLLOWUP
--- NOTE | 2017-12-23 11:06 | NUR ---
Multiple attempts to participate with therapy today. Patient wanted to do treatment tomorrow. Nursing made aware. Will try again later.
--- NOTE | 2017-12-23 11:30 | NUR ---
BLOOD SUGAR 213, COVERED PER SLIDING SCALE. PT LAYING TO SIDE IN BED, RESTING, EASY TO AROUSE. AFTER INSULIN, PT DENIED ANY NEW NEEDS. WILL FOLLOW UP
[2017-12-23 12:33] VITALS: BP_SYST 110
--- NOTE | 2017-12-23 13:00 | NUR ---
DR HERNÁNDEZ MAKING ROUNDS, UPDATED ON PT STATUS, WILL CARRY OUT ANY NEW ORDERS
--- NOTE | 2017-12-23 14:00 | NUR ---
PAIN MANAGEMENT/ DISCHARGE UPDATE PT GIVEN SCHEDULED PAIN MEDICATION. UPDATED ON DISCHARGE TODAY, PT VERBALIZED UNDERSTANDING. WILL START DISCHARGE PROCESS.
--- NOTE | 2017-12-23 14:30 | NUR ---
ATTEMPTED TO CALL FAMILY MEMBERS TO NOTIFY OF TRANSFER ALISTAIR BACON, DID NOT ANSWER, UNABLE TO LEAVE MESSAGE JERMAINE WALDEN, DID NOT ANSWER, LEFT MESSAGE
[2017-12-23 14:34] VITALS: BP_SYST 116
--- NOTE | 2017-12-23 14:50 | NUR ---
REPORT GIVEN TO VAIBHAV CAMARGO AT [facility] [phone] GIVEN CALL BACK NUMBER IN CASE OF ANY FURTHER QUESTIONS.
[2017-12-23 16:41] VITALS: BP_SYST 116
--- NOTE | 2017-12-23 16:45 | NUR ---
BLOOD SUGAR 227, WILL FOLLOW UP WITH INSULIN ADMINISTRATION PER SLIDING SCALE BUDGET ENGINEER AT BEDSIDE FOR HYGIENE, PREPARING PT FOR TRANSFER TO [facility].
[2017-12-23] MEDS: SOD FERRIC GLUC COMPLEX/SUC 125 MG in NS 100 ML IV SCH (17:23)
[2017-12-23] MEDS: WARFARIN SODIUM 1 MG TABLET PO SCH (17:24)
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
--- NOTE | 2017-12-23 18:34 | NUR ---
CLOSING NOTE PT SITTING TO SIDE OF BED, EATING DINNER, NO S/S OF ACUTE DISTRESS OR PAIN AT THIS TIME. PT IS READY FOR DISCHARGE. CASILLAS CATHETER IN PLACE AND DRAINING TO GRAVITY, IV SITE SALINE LOCKED. AWAITING TRANSPORTATION. SAFETY PRECAUTIONS IN PLACE, CALL LIGHT WITHIN REACH, WILL GIVE REPORT TO FOLLOWING SHIFT Addendum: 12/23/17 at 1853 by Disha Mclaughlin RN IV SITE TO RIGHT ARM INFILTRATED, IV CATHETER REMOVED, TIP INTACT, WILL ENDORSE TO FOLLOWING SHIFT TO START NEW IV SITE
--- NOTE | 2017-12-23 19:45 | NUR ---
Initial Note Received patient awake, alert and oriented, finishing her dinner. No SOB noted. Denies any pain or n/v at this time. No IV access. F/C intact and draining well. On Room air and @2 saturation is 94%. BLE edema. Dressing on both posterior thigh CDI. Made patient aware that we are awaiting for the ambulance to arrive and she will be discharge to [facility] room 1209A. Report was given to RAMAN Barnhart by AM nurse earlier. Bleeding precaution observed. Care and monitoring will be provided. Needs attended. Call light within reach. Bed alarm on and at lowest position at all times. Kept clean, dry and comfortable.
[2017-12-23 20:00] VITALS: BP_SYST 146
--- NOTE | 2017-12-23 20:15 | NUR ---
Report to ambulance Ambulance staff arrived. VS taken and stable, afebrile. No complaints at this time. Given Baclofen and BP medication per patient's request. Given report to [facility] staff. Belongings noted and with the patient. No IV access. Patient will leave with F/C. Needs attended. Care and monitoring provided. Kept clean, dry and comfortable.
--- NOTE | 2017-12-23 20:40 | NUR ---
DC by ambulance Patient was discharged to [facility] via [facility]. Belongings with patient. No signs and symptoms of acute distress upon discharge.
== END 2017-12-23 20:40 | DRG 92 ==
LOC: SED 11:50 → STU 14:39
PROVIDERS: ADMIT Internal Medicine; ATTEND Internal Medicine
DX: G92 Toxic encephalopathy (principal); N17.9 Acute kidney failure, unspecified; I42.0 Dilated cardiomyopathy; I13.0 Hypertensive heart and chronic kidney disease with heart failure and stage 1 through stage 4 chronic kidney disease, or unspecified chronic kidney disease; D68.9 Coagulation defect, unspecified; Z68.42 Body mass index [BMI] 45.0-49.9, adult; I50.42 Chronic combined systolic (congestive) and diastolic (congestive) heart failure; L03.116 Cellulitis of left lower limb; L03.115 Cellulitis of right lower limb; E46 Unspecified protein-calorie malnutrition; G89.4 Chronic pain syndrome; E66.01 Morbid (severe) obesity due to excess calories; E11.65 Type 2 diabetes mellitus with hyperglycemia; E11.22 Type 2 diabetes mellitus with diabetic chronic kidney disease; N18.2 Chronic kidney disease, stage 2 (mild); I89.0 Lymphedema, not elsewhere classified; R09.02 Hypoxemia; D50.9 Iron deficiency anemia, unspecified; D63.8 Anemia in other chronic diseases classified elsewhere; I87.8 Other specified disorders of veins; K43.9 Ventral hernia without obstruction or gangrene; E11.21 Type 2 diabetes mellitus with diabetic nephropathy; D17.0 Benign lipomatous neoplasm of skin and subcutaneous tissue of head, face and neck; I49.9 Cardiac arrhythmia, unspecified; M19.90 Unspecified osteoarthritis, unspecified site; I48.91 Unspecified atrial fibrillation; T45.515A Adverse effect of anticoagulants, initial encounter; Y92.89 Other specified places as the place of occurrence of the external cause; Z92.21 Personal history of antineoplastic chemotherapy; Z85.43 Personal history of malignant neoplasm of ovary; Z87.442 Personal history of urinary calculi; Z86.711 Personal history of pulmonary embolism; Z86.718 Personal history of other venous thrombosis and embolism; Z79.01 Long term (current) use of anticoagulants; Z85.42 Personal history of malignant neoplasm of other parts of uterus; Z90.710 Acquired absence of both cervix and uterus; Z86.73 Personal history of transient ischemic attack (TIA), and cerebral infarction without residual deficits; Z92.3 Personal history of irradiation
CPT/HCPCS: 36415; 36600; 70450-TC; 71045; 76700-TC; 80048; 80053; 80061; 80307; 81000-TC; 82607; 82803-TC; 82962; 83036; 83540-TC; 83550-TC; 83690-TC; 83735-TC; 83880; 84100-TC; 84439; 84443-TC; 84484; 85007; 85025; 85027; 85610-TC; 85730-TC; 86304; 87086; 93005; 94640; 94760; 95816; 97110-GP; 97116-GP; 97530-GP; 99285; G0482; J1815; J1940; J2310; J2916; J7620